=== PATIENT | female | born 1965 | race Caucasian/White ===

== ENCOUNTER → 2019-01-02 | Emergency (ER) | payer OTHER ==
[~2019-01-02] VITALS: Ht 160 cm; Wt 62.6 kg
[~2019-01-02] MED LIST: KETO10TA2 PO; LEVAQUIN750 MG PO; LIPITOR20 MG; PROVENTIL3 ML/2.5 M IH; SYNTHROID175 MCG; TESSALON200 MG PO
== END | disposition home or self-care (01) ==
LOC: ER 22:07
DX: R10.32 Left lower quadrant pain (principal)